=== PATIENT | male | born 1960 | race Caucasian/White ===

== ENCOUNTER 2021-02-04 12:59 | Outpatient (RCR) | payer BC, SELFPAY ==
[2021-02-04] MEDS: COVID-19 VACC, MRNA(PFIZER)/PF 30 MCG/0.3 ML SYRINGE IM (14:22)
[2021-02-25] MEDS: COVID-19 VACC, MRNA(PFIZER)/PF 30 MCG/0.3 ML SYRINGE IM (14:03)
== END 2021-02-04 23:59 ==
LOC: IMMUN 12:59
PROVIDERS: PCP Preventive Medicine Occupational Medicine; Visit Provider Family Medicine
DX: Z23 Encounter for immunization (principal)
CPT/HCPCS: 0001A; 0002A; 91300

== ENCOUNTER → 2024-02-21 | Outpatient (CLI) | payer BC, SELFPAY ==
[2024-02-21] VITALS (10 sets, daily range): BP systolic 121–143; BP diastolic 80–94; PULSE 73–83; RESP 16; O2SAT 94–95; BMI 38.7
--- NOTE | 2024-02-21 12:31 | CT_ITS ---
STUDY: CT CHEST WITH CONTRAST REASON FOR EXAM: Male, 63 years old. abn ecg, pvc, murmur,htn RADIATION DOSAGE (If Supplied By Facility): CTDIvol = ( 44.60 ) mGy, DLP = ( 2467.41 ) mGycm TECHNIQUE: Transaxial imaging was performed following intravenous administration of 50 mL of Isovue-370.. Cardiac over read examination. Individualized dose optimization techniques were used for this CT. COMPARISON: No relevant priors. FINDINGS: CHEST The lungs are normal. There is no demonstrated pleural abnormality. There are calcifications of the coronary arteries. There are small lymph nodes within the mediastinum, which are normal in size and morphology most compatible with reactive lymph hyperplasia. Normal hilar regions. Normal unenhanced pulmonary arteries. There is atherosclerotic calcification of the aortic arch. Normal osseous structures. Diffuse fatty infiltration of the liver. CT/Limited Chest CT Cardiac Only IMPRESSION: Coronary artery calcification. Electronically Signed: Jeffrey Suárez MD at 14:25 EDT ,
[2024-02-21] MEDS: Metoprolol Tartrate 5 MG/5 ML Vial IV ×3 (12:52→13:07)
[2024-02-21 13:01] LABS: CREATININE FINGERSTICK < 1.0 mg/dL (0.70-1.30); EGFR FINGERSTICK > 60.0000 mL/min (>60)
[2024-02-21] MEDS: Nitroglycerin SL (ED/IMG/CATH) 0.4 MG TABLET SL (13:28)
--- NOTE | 2024-02-21 18:24 | CCTA.WCONT ---
CCTA w/Cont Coronary Arteries Date of Study:: 02/21/24 Hypertension abnormal EKG Coronary Calcium Scoring: High-resolution Computed Tomographic imaging of the chest was performed on [02/21/2024], with particular attention paid to the coronary arteries. Intravenous contrast agent was administered per protocol and images reconstructed and displayed. LEFT MAIN CORONARY ARTERY: Arises from the left coronary cusp with mild calcification present [] LEFT ANTERIOR DESCENDING CORONARY ARTERY: Eccentric calcification noted in the left anterior descending artery with mild to moderate stenosis present [] LEFT CIRCUMFLEX CORONARY ARTERY: Eccentric calcification noted in the circumflex artery with evidence of moderate stenosis present [] RIGHT CORONARY ARTERY: Dominant vessel arising from the right coronary cusp with extensive calcification present and at least moderate soft and hard plaque noted. [] THORACIC AORTA: [] PULMONARY ARTERY: [] LEFT ATRIUM/APPENDAGE: [] MITRAL VALVE: [] AORTIC VALVE: [] LEFT VENTRICLE: Normal function [] CORONARY CALCIUM SCORE: Elevated calcium score as follows left main 236 [address]AD 32 Left circumflex artery 175. Right coronary artery 988. Total Agatston score 1432. Percentile ranking is greater than 90%. Conclusion: Coronary calcium score elevated suggestive of at least [address] angio demonstrating moderate obstructive disease at least in the circumflex artery and the right coronary artery. []
== END | disposition home or self-care (01) ==
PROVIDERS: PCP Preventive Medicine Occupational Medicine; Referring Provider Nurse Practitioner Family; Visit Provider Nurse Practitioner Family
DX: R94.31 Abnormal electrocardiogram [ECG] [EKG] (principal); I49.3 Ventricular premature depolarization; R01.1 Cardiac murmur, unspecified; I10 Essential (primary) hypertension; E78.2 Mixed hyperlipidemia; I25.10 Atherosclerotic heart disease of native coronary artery without angina pectoris; I70.90 Unspecified atherosclerosis
CPT/HCPCS: 75571; 75574; 76380; 96374